=== PATIENT | female | born 1970 | race Caucasian/White ===

== ENCOUNTER → 2017-10-26 | Outpatient (CLI) | payer OTHER | LOC: CIMAGING 07:53 | PROVIDERS: ATTEND Internal Medicine Hematology & Oncology | DX: Z12.31 Encounter for screening mammogram for malignant neoplasm of breast (principal); Z80.3 Family history of malignant neoplasm of breast | CPT/HCPCS: G0202 ==

== ENCOUNTER 2018-08-26 13:06 | Emergency (ER) | payer OTHER ==
--- NOTE | 2018-08-26 13:36 | EDPHY ---
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 She normally takes Botox injections or Benadryl and Excedrin p.m. And goes to sleep for several days to get rid of her headache. The headache is not going away. She reports that the trigger is having teenagers. She denies vomiting, fever, neck stiffness. She denies worse headache of her life or thunderclap headache. at bedside. Modifying Factors: See above Comment: ROS: A comprehensive 10 system review of systems is otherwise negative aside from elements mentioned in the history of present illness. MEDICAL/SURGICAL/SOCIAL HISTORY: Medical/Surgical history: pseudotumor cerebrae, migraines L oophorectomy, hysterectomy Social history: Nonsmoker. . Family history noncontributory. CONSTITUTIONAL: Nontoxic-appearing middle-aged white female, awake and alert, no obvious distress HEENT: Atraumatic and normocephalic, PERRL, EOMI. Wears glasses. Nares patent ; no rhinorrhea; no nasal mucosal edema. Tympanic membranes clear. Oropharynx clear, no exudate and moist pink mucosa. Airway patent. No lymphadenopathy. No meningismus. Cardiovascular: Normal S1/S2, regular rate, regular rhythm, without murmur rub or gallop. PULMONARY/CHEST: Symmetrical and nontender. Clear to auscultation bilaterally. Good air movement. No accessory muscle usage. ABDOMEN: Soft, nondistended, nontender, no rebound, no guarding, no peritoneal signs, no masses or organomegaly. No CVAT. EXTREMITIES: 2/2 pulses, strength 5/5, no deformities, no clubbing, no cyanosis or edema. NEUROLOGICAL: no focal neuro deficits. GCS 15.+ nystagmus noted both eyes. No dizziness with Auberry-Hallpike maneuver. Speech clear. Cranial nerves 2-12 grossly intact. Normal cerebellar testing. Speech clear. SKIN: Warm and dry, no erythema. no rash. Good capillary refill. Source: Patient Exam Limitations: No limitations - Personal History LMP (Females 10-55): Hysterectomy Current Tetanus Diphtheria and Acellular Pertussis (TDAP): Yes Tetanus Vaccine Date: 2009 - Medical/Surgical History Hx Asthma: No Hx Chronic Respiratory Disease: No Hx Diabetes: No Hx Cardiac Disease: No Hx Renal Disease: No Hx Cirrhosis: No Hx Alcoholism: No Hx HIV/AIDS: No Hx Splenectomy or Spleen Trauma: No Other PMH: pseudotumor cerebrae, migraines. L oophorectomy, hysterectomy - Social History Smoking Status: Former smoker Constitutional: Initial Vital Signs Temperature (C) 36.8 C 08/26/18 13:10 Heart Rate 90 08/26/18 13:10 Respiratory Rate 18 08/26/18 13:10 Blood Pressure 176/124 H 08/26/18 13:10 O2 Sat (%) 96 08/26/18 13:10 O2 Delivery Mode Room Air Allergies/Adverse Reactions: codeine [Codeine] Allergy (Intermediate, Verified 08/26/18 13:09) itching, visual hallucinations morphine Allergy (Intermediate, Verified 08/26/18 13:09) Itching oxycodone [Oxycodone] Allergy (Intermediate, Verified 08/26/18 13:09) becomes violent, visual hallucinations oxycodone HCl [From OxyContin] Allergy (Intermediate, Verified 08/26/18 13:09) visual hallucinations, becomes violent hydrocodone [Hydrocodone] Allergy (Verified 08/26/18 13:09) visual hallucinations latex Allergy (Verified 08/26/18 13:09) Latex, Natural Rubber Allergy (Verified 08/26/18 13:09) Z-Pack Allergy (Uncoded 01/26/16 13:08) Home Medications: Medication Instructions Recorded Acet/Caffeine/Buta Fioricet 1 each PO Q6 PRN #10 tab 08/26/18 [Fioricet (*)] Promethazine HCl [Phenergan 12.5mg 12.5 mg PO Q4-6PRN PRN #10 tablet 08/26/18 tab] Medical Decision Making - Diagnostics Imaging Results: Imaging Impressions Head CT 08/26/18 13:46 Impression: Normal. Results called and discussed with Avis Lockhart PA-C, at 08/26/2018 14:20. ED Course/Re-evaluation: Vital signs reviewed and show elevated blood pressure. Head CT scan ordered as patient reports that this headache is different from her prior ones. IV access obtained and laboratory studies ordered Given 1 L normal saline, IV Decadron, IV Reglan, IV Benadryl, IV Dilaudid 1 mg 1430: Called by radiologist who advised that head CT scan shows no acute intracranial process. Laboratory studies reviewed. No signs of leukocytosis/anemia/platelet dysfunction/MARTA/electrolyte imbalance/. No signs of CVA, vertigo, sinusitis, meningitis 1520: Reassessed patient. Patient reports that she is feeling better and asking to be discharged home. Will give her prescription for Phenergan and Fioricet. Advised neurology follow-up. This patient was seen under the supervision of my secondary supervising physician. I evaluated care for this patient independently. Discussed this patient with Dr. Contreras. Differential Diagnosis: Headache including but not limited to subarachnoid hemorrhage, migraine headache , tension headache and infectious causes such as meningitis, pharyngitis and sinusitis. - Data Points Laboratory Results: Laboratory Results 08/26/18 13:54 08/26/18 13:54 08/26/18 08/26/18 08/26/18 13:54 13:54 13:54 WBC 6.18 10^3/uL 10^3/uL (3.80-9.50) RBC 5.21 10^6/uL 10^6/uL (4.18-5.33) Hgb 15.2 g/dL g/dL (12.6-16.3) Hct 44.1 % % (38.0-47.0) MCV 84.6 fL fL (81.5-99.8) MCH 29.2 pg pg (27.9-34.1) MCHC 34.5 g/dL g/dL (32.4-36.7) RDW 12.7 % % (11.5-15.2) Plt Count 205 10^3/uL 10^3/uL (150-400) MPV 9.5 fL fL (8.7-11.7) Neut % (Auto) 39.9 % % (39.3-74.2) Lymph % (Auto) 48.1 % H % (15.0-45.0) [place] % (Auto) 7.6 % % (4.5-13.0) Eos % (Auto) 3.7 % % (0.6-7.6) Baso % (Auto) 0.5 % % (0.3-1.7) Nucleat RBC Rel Count 0.0 % % (0.0-0.2) Absolute Neuts (auto) 2.47 10^3/uL 10^3/uL (1.70-6.50) Absolute Lymphs (auto) 2.97 10^3/uL 10^3/uL (1.00-3.00) Absolute Monos (auto) 0.47 10^3/uL 10^3/uL (0.30-0.80) Absolute Eos (auto) 0.23 10^3/uL 10^3/uL (0.03-0.40) Absolute Basos (auto) 0.03 10^3/uL 10^3/uL (0.02-0.10) Absolute Nucleated RBC 0.00 10^3/uL 10^3/uL (0-0.01) Immature Gran % 0.2 % % (0.0-1.1) Immature Gran # 0.01 10^3/uL 10^3/uL (0.00-0.10) Platelet Estimate TNP Sodium 142 mEq/L mEq/L (135-145) Potassium 4.0 mEq/L mEq/L (3.3-5.0) Chloride 106 mEq/L mEq/L (97-110) Carbon Dioxide 26 mEq/l mEq/l (22-31) Anion Gap 10 mEq/L mEq/L (6-14) BUN 13 mg/dL mg/dL (7-23) Creatinine 0.7 mg/dL mg/dL (0.6-1.0) Estimated GFR > 60 Glucose 106 mg/dL H mg/dL (70-100) Calcium 8.7 mg/dL mg/dL (8.5-10.4) Beta HCG, Qual NEGATIVE Medications Given: Discontinued Medications Dexamethasone (Decadron Injection) 10 mg IVP EDNOW ONE Stop: 08/26/18 13:46 Last Admin: 08/26/18 14:12 Dose: 10 mg Diphenhydramine HCl (Benadryl Injection) 50 mg IVP EDNOW ONE Stop: 08/26/18 13:46 Last Admin: 08/26/18 14:11 Dose: 50 mg Hydromorphone HCl (Dilaudid) 1 mg IVP EDNOW ONE Stop: 08/26/18 13:46 Last Admin: 08/26/18 14:12 Dose: 1 mg Sodium Chloride (Ns) 1,000 mls @ 0 mls/hr IV ONCE ONE; Wide Open PRN Reason: Protocol Stop: 08/26/18 13:46 Last Admin: 08/26/18 14:12 Dose: 1,000 mls Metoclopramide HCl (Reglan Injection) 10 mg IVP EDNOW ONE Stop: 08/26/18 13:46 Last Admin: 08/26/18 14:12 Dose: 10 mg Departure - Departure Disposition: Home, Routine, Self-Care Clinical Impression: Migraine headache without aura Qualifiers: Status migrainosus presence: without status migrainosus Intractability: not intractable Qualified Code(s): G43.009 - Migraine without aura, not intractable , without status migrainosus Condition: Good Instructions: Migraine Headache (ED) Additional Instructions: Rest as much as possible until you are feeling better. Consume a minimum of 8-10 glasses of water or electrolyte fluid replacement drinks that include Gatorade, Powerade, Pedialyte. Eat a bland diet for the next 48 hours and then slowly advance as tolerated. Take promethazine 1 tab every 4-6 hours as needed for nausea, vomiting. Take Fioricet every 4-6 hours as needed for headache. Return to the ER immediately if you have progressive headaches, neurologic deficits, gait abnormality, visual disturbance, slurred speech, or any other symptom that concerns you. Referrals: MIKA CISNEROS MD [Primary Care Provider] - As per Instructions Prescriptions: Acet/Caffeine/Buta Fioricet [Fioricet (*)] 1 each PO Q6 PRN #10 tab PRN Reason: Headache Promethazine HCl [Phenergan 12.5mg tab] 12.5 mg PO Q4-6PRN PRN #10 tablet PRN Reason: Nausea/Vomiting, Use 1st
[2018-08-26] MEDS ORDERED: DEXAMETHASONE 10 MG/ML VIAL IVP ONE (13:45)
[2018-08-26] MEDS ORDERED: NS 1,000 ML IV ONE (13:45)
[2018-08-26] MEDS ORDERED: HYDROmorphONE/DILAUDID 2 MG/ML INJ IVP ONE (13:45)
[2018-08-26] MEDS ORDERED: METOCLOPRAMIDE 10 MG/2 ML VIAL IVP ONE (13:45)
[2018-08-26] MEDS ORDERED: DEXAMETHASONE 4 MG/ML VIAL ONE (14:09)
[2018-08-26 14:26] LABS: PLATELET COUNT 205 10^3/uL (150-400)
[2018-08-26 15:33] VITALS: BP 105/77
== END 2018-08-26 15:31 | disposition home or self-care (01) ==
DX: G43.909 Migraine, unspecified, not intractable, without status migrainosus (principal); E86.9 Volume depletion, unspecified
CPT/HCPCS: 96374; J1100; J1170; J1200; J2765

== ENCOUNTER 2018-12-31 07:07 | Emergency (ER) | payer OTHER ==
--- NOTE | 2018-12-31 07:26 | EDPHY ---
HPI/HX/ROS/PE/MDM Narrative: CHIEF COMPLAINT: Headache HPI: This patient is a 48 year old female with history of pseudotumor cerebri and chronic migraines. She has been feeling poorly since , five days ago, with URI-type symptoms and headache. She was evaluated by her primary care provider's office and had a negative strep swab. Her children have had the flu recently so she was started on Tamiflu for symptom relief. Since , she has not had relief from her headache. She has developed left ear pain and visual disturbances, as if her eyes are "bouncy" as well. No diplopia. She generally receives Botox treatments for her migraines, but this has not helped on this occasion. She reports IV Benadryl has helped in the past, and notes that she does not tolerate narcotic medications well. She states she presents today primarily to reduce the severity of her headaches. She denies fever, chest pain, shortness of breath, vomiting, diarrhea, urinary complaints, or other associated symptoms. REVIEW OF SYSTEMS: A comprehensive 10 system review of systems is otherwise negative aside from elements mentioned in the history of present illness and medical decision making. PMH: Pseudotumor cerebri, chronic migraines, left oophorectomy, hysterectomy. SOCIAL HISTORY: . PHYSICAL EXAM: General:Patient is alert, in no acute distress. ENT:Eyes are normal to inspection. ENT inspection normal. Neck: Normal inspection. Full range of motion. Respiratory:No respiratory distress. Breath sounds normal bilaterally. Cardiovascular: Regular rate and rhythm. Strong peripheral pulses. Normal cap refill. Abdomen:The abdomen is nontender to palpation. There are no peritoneal signs. There are normal bowel sounds. Back: Normal to inspection. No tenderness to palpation. Skin: Normal color. No rash. Warm and dry. Extremities: Normal appearance. Full range of motion. Neuro: Oriented x3. Normal motor function. Normal sensory function. ED Course: 48 y/o female with history of pseudotumor cerebri and chronic migraines presents with headache ongoing since , five days ago. IV established. The patient reports history of adverse reactions to almost every medication we would normally give for headache, so we agreed on plan to administer 1L IV NS, 30mg IV Toradol, and 50mg IV Benadryl for symptom relief. Plan for flu swab and strep swab given the patient's URI symptoms, sore throat, and ear pain. Respiratory pathogen swab is positive for RSV. Negative for flu, negative strep swab. 10:40 Reassessed. Patient continues to experience headache, but her symptoms have relieved somewhat with medications. She requests additional Benadryl. Plan to administer 25mg IV Benadryl and 1000mg PO acetaminophen for headache relief. 12:15 Reassessed. Patient is feeling much improved and would like to go home. Plan to discharge home in good condition. Follow up and return precautions discussed. She is comfortable with this plan. MDM: This patient presents with acute exacerbation of chronic migraines without red flags to suggest meningitis, neurologic emergency. I suspect this exacerbation was likely caused by acute RSV infection, which she has tested positive for. - Data Points Laboratory Results: 12/31/18 12/31/18 Unknown 08:50 Nasal Influenza A PCR NEGATIVE FOR FLU A (NEGATIVE) Nasal Influenza B PCR NEGATIVE FOR FLU B (NEGATIVE) RSV (PCR) RSV DETECTED H (NEGATIVE) Group A Strep Screen NEGATIVE (NEGATIVE) Group A Strep DNA Pending Medications Given: Discontinued Medications Acetaminophen (Tylenol) 1,000 mg PO EDNOW ONE Stop: 12/31/18 10:43 Last Admin: 12/31/18 10:46 Dose: 1,000 mg Diphenhydramine HCl (Benadryl Injection) 50 mg IVP EDNOW ONE Stop: 12/31/18 07:44 Last Admin: 12/31/18 08:46 Dose: 50 mg Diphenhydramine HCl (Benadryl Injection) 25 mg IVP EDNOW ONE Stop: 12/31/18 10:40 Last Admin: 12/31/18 10:47 Dose: 25 mg Sodium Chloride (Ns) 1,000 mls @ 0 mls/hr IV ONCE ONE; Wide Open PRN Reason: Protocol Stop: 12/31/18 07:44 Last Admin: 12/31/18 08:44 Dose: 1,000 mls Ketorolac Tromethamine (Toradol) 30 mg IVP EDNOW ONE Stop: 12/31/18 07:44 Last Admin: 12/31/18 08:46 Dose: 30 mg General Time Seen by Provider: 12/31/18 07:25 Initial Vital Signs: Initial Vital Signs Temperature (C) 37.5 C 12/31/18 07:11 Heart Rate 110 H 12/31/18 07:11 Respiratory Rate 16 12/31/18 07:11 Blood Pressure 169/107 H 12/31/18 07:11 O2 Sat (%) 94 12/31/18 07:11 O2 Delivery Mode Room Air Allergies/Adverse Reactions: codeine [Codeine] Allergy (Intermediate, Verified 12/31/18 07:11) itching, visual hallucinations morphine Allergy (Intermediate, Verified 12/31/18 07:11) Itching oxycodone [Oxycodone] Allergy (Intermediate, Verified 12/31/18 07:11) becomes violent, visual hallucinations oxycodone HCl [From OxyContin] Allergy (Intermediate, Verified 12/31/18 07:11) visual hallucinations, becomes violent hydrocodone [Hydrocodone] Allergy (Verified 12/31/18 07:11) visual hallucinations latex Allergy (Verified 12/31/18 07:11) Latex, Natural Rubber Allergy (Verified 12/31/18 07:11) Z-Pack Allergy (Uncoded 12/31/18 07:11) Home Medications: Medication Instructions Recorded Benadryl 12/31/18 Ibuprofen 12/31/18 Nyquil 12/31/18 Departure - Departure Disposition: Home, Routine, Self-Care Clinical Impression: Headache, RSV (respiratory syncytial virus infection) Condition: Good Instructions: Respiratory Syncytial Virus (ED), Acute Headache (ED) Additional Instructions: Follow-up with your primary care physician within 72 hours. Stay well hydrated. Use Tylenol and/or ibuprofen as directed. Return to the emergency department immediately for recurrence of headache, nausea, vomiting, numbness, weakness, neck pain, fever or other concerns. Referrals: MIKA CISNEROS MD [Primary Care Provider] - As per Instructions Report Scribed for: Smith Longoria Report Scribed by: Minoo Kendall Date of Report: 12/31/18 Time of Report: 10:23 Physician Review and Approval Statement: Portions of this note were transcribed by an ED scribe. I personally performed the history, physical exam, and medical decision making; and confirm the accuracy of the information in the transcribed note.
[2018-12-31] MEDS ORDERED: KETOROLAC 30 MG/1 ML SDV IVP ONE (07:43)
[2018-12-31] MEDS ORDERED: NS 1,000 ML IV ONE (07:43)
[2018-12-31] MEDS ORDERED: ACETAMINOPHEN 500 MG TAB PO ONE (10:42)
[2018-12-31 12:26] VITALS: BP 138/85
== END 2018-12-31 12:44 | disposition home or self-care (01) ==
DX: B97.4 Respiratory syncytial virus as the cause of diseases classified elsewhere (principal); R51 Headache; H92.02 Otalgia, left ear; Z86.011 Personal history of benign neoplasm of the brain
CPT/HCPCS: 96374; J1200; J1885